=== PATIENT | male | born 1950 | race Caucasian/White ===

== ENCOUNTER 2019-11-12 14:01 | Emergency (ER) | payer OTHER ==
[~2019-11-12] VITALS: Ht 165.1 cm; Wt 88.0 kg
[~2019-11-12 14:01] MED LIST: AMLO5TAB15; SIMV5TAB50
[2019-11-12 14:50] LABS: Basophils # (auto) 0.1 10 ^3/uL (0-0.2); Basophils % (auto) 0.9 % (0.0-2.0); Eosinophils # (auto) 0.2 10 ^3/uL (0-0.8); Eosinophils % (auto) 2.4 % (0.0-7.0); Hematocrit 49.4 % (41.0-53.0); Lymphocytes # (auto) 2.2 10 ^3/uL (0.4-5.4); Lymphocytes % (auto) 28.3 % (10.0-50.0); Mean Corpuscular Hemoglobin 30.8 pg (28.0-32.0); Mean Corpuscular Hgb Conc. 34.5 g/dL (32.0-36.0); Mean Corpuscular Volume 89.5 fL (80.0-100.0); Monocytes # (auto) 0.7 10 ^3/uL (0-1.3); Monocytes % (auto) 9.3 % (0.0-12.0); Neutrophils # (auto) 4.7 10 ^3/uL (1.6-8.6); Neutrophils % (auto) 59.1 % (37.0-80.0); Nucleated Red Blood Cells % 0.4 %; Platelet Count (auto) 193 10^3/uL (140-450); Red Blood Cells 5.52 10^6/uL (4.5-5.90); Red Cell Distribution Width 13.6 % (11.8-14.3); White Blood Cell 7.9 10^3/uL (4.4-10.8)
[2019-11-12 15:26] LABS: Anion Gap 7 (5-15); Blood Urea Nitrogen 15 mg/dL (7-18); Calcium 8.7 mg/dL (8.5-10.1); Carbon Dioxide 25 mmol/L (21-32); Chloride 107 mmol/L (98-107); Glucose 137 mg/dL (74-106); Magnesium 2.1 mg/dL (1.6-2.6); Potassium 3.8 mmol/L (3.5-5.1); Sodium 139 mmol/L (136-145)
[2019-11-12] MEDS ORDERED: TAMSULOSIN HYDROCHLORIDE 0.4 MG CAP PO ONE (15:30)
[2019-11-12] MEDS ORDERED: ONDANSETRON HCL 4 MG/2 ML VIAL IV ONE (15:30)
[2019-11-12] MEDS ORDERED: MORPHINE SULFATE 4 MG/ML SYR/VIAL IV ONE (15:30)
[2019-11-12 15:34] LABS: Alanine Aminotransferase 47 U/L (16-61); Alkaline Phosphatase 82 U/L (45-117); Aspartate Aminotransferase 20 U/L (15-37); BUN/Creatinine Ratio 14.3; Bilirubin, Total 1.6 mg/dL (0.2-1.0); GFR African American 91 mL/min; GFR Non-African American 75 mL/min; Total Protein 7.5 g/dL (6.4-8.2)
[2019-11-12] MEDS ORDERED: KETOROLAC TROMETH 30 MG/ML 1ML VIAL IV ONE (15:45)
[2019-11-12] MEDS ORDERED: SODIUM CHLORIDE 0.9% 1,000 ML IV ONE (16:45)
[2019-11-12 17:11] LABS: Urine Bacteria NONE SEEN /hpf (None Seen); Urine Blood Negative /uL (Negative); Urine Mucus FEW (None Seen); Urine Specific Gravity 1.025 (1.001-1.035); Urine WBC 2 /hpf (0 - 3)
[2019-11-12 17:19] LABS: Amphetamine Screen, Urine NEGATIVE (NEGATIVE); Barbiturate Scree,Urine NEGATIVE (NEGATIVE); Benzodiazephine Screen, Urine NEGATIVE (NEGATIVE); Cannabinoid Screen, Urine NEGATIVE (NEGATIVE); Cocaine Screen, Urine NEGATIVE (NEGATIVE); Opiate Scree,Urine NEGATIVE (NEGATIVE); Phencyclidine Screen, Urine NEGATIVE (NEGATIVE)
[2019-11-12 17:52] VITALS: BP 147/82
== END 2019-11-12 19:03 | disposition home or self-care (01) ==
LOC: ER 14:01
DX: N13.2 Hydronephrosis with renal and ureteral calculous obstruction (principal); E78.5 Hyperlipidemia, unspecified; I10 Essential (primary) hypertension; Z79.899 Other long term (current) drug therapy
CPT/HCPCS: 36415; 74176; 80053; 80307; 81001; 83735; 84484; 85025; 93005; 96374; 96375; 99285; J1885; J2405

== ENCOUNTER 2020-11-14 20:31 | Emergency (ER) | payer OTHER ==
[~2020-11-14] VITALS: Ht 165.1 cm; Wt 88.9 kg
[~2020-11-14 20:31] MED LIST changes: +AMLO-489; -AMLO5TAB15
[2020-11-14 21:15] LABS: Urine Bacteria NONE SEEN /hpf (None Seen); Urine Blood 2+ /uL (Negative); Urine Hyaline Cast FEW /lpf (0 - 2); Urine Specific Gravity 1.009 (1.001-1.035); Urine WBC 1 /hpf (0 - 3)
[2020-11-14 21:58] LABS: Basophils # (auto) 0.1 10 ^3/uL (0-0.2); Basophils % (auto) 0.4 % (0.0-2.0); Eosinophils # (auto) 0.1 10 ^3/uL (0-0.8); Eosinophils % (auto) 0.5 % (0.0-7.0); Hematocrit 48.1 % (41.0-53.0); Hemoglobin 16.9 g/dL (13.5-17.5); Lymphocytes # (auto) 1.4 10 ^3/uL (0.4-5.4); Lymphocytes % (auto) 9.6 % (10.0-50.0); Mean Corpuscular Hemoglobin 30.9 pg (28.0-32.0); Mean Corpuscular Hgb Conc. 35.1 g/dL (32.0-36.0); Monocytes % (auto) 6.8 % (0.0-12.0); Neutrophils # (auto) 12.4 10 ^3/uL (1.6-8.6); Neutrophils % (auto) 82.7 % (37.0-80.0); Nucleated Red Blood Cells % 0.1 %; Red Blood Cells 5.47 10^6/uL (4.5-5.90); Red Cell Distribution Width 13.6 % (11.8-14.3)
[2020-11-14 22:16] LABS: Albumin 3.9 g/dL (3.4-5.0); Calcium 9.3 mg/dL (8.5-10.1); Potassium 4.1 mmol/L (3.5-5.1)
[2020-11-14 22:17] LABS: BUN/Creatinine Ratio 12.5
[2020-11-14 22:20] LABS: Bilirubin, Total 1.7 mg/dL (0.2-1.0); Total Protein 7.8 g/dL (6.4-8.2)
[2020-11-15 00:15] VITALS: BP 170/93
[2020-11-15] MEDS ORDERED: ACETAMINOPHEN 325 MG TAB PO ONE (01:15)
== END 2020-11-15 02:22 | disposition left against medical advice (07) ==
LOC: ER 20:34
DX: N20.0 Calculus of kidney (principal); N13.30 Unspecified hydronephrosis; I10 Essential (primary) hypertension; E78.5 Hyperlipidemia, unspecified; Z79.899 Other long term (current) drug therapy
CPT/HCPCS: 36415; 80053; 81001; 85025

== ENCOUNTER 2023-12-04 15:24 | Inpatient (IN) | payer MEDICARE, OTHER ==
[~2023-12-04] VITALS: Ht 165.1 cm; Wt 77.7 kg
[~2023-12-04 15:24] MED LIST changes: -AMLO-489; +AMLO1TAB22; +SIMV5TAB14; -SIMV5TAB50
[2023-12-04 15:59] LABS: Basophils # (auto) 0 10 ^3/uL (0-0.2); Basophils % (auto) 0.3 % (0.0-2.0); Eosinophils # (auto) 0.1 10 ^3/uL (0-0.8); Hematocrit 50.9 % (41.0-53.0); Hemoglobin 17.4 g/dL (13.5-17.5); Lymphocytes # (auto) 0.9 10 ^3/uL (0.4-5.4); Lymphocytes % (auto) 10.2 % (10.0-50.0); Mean Corpuscular Hemoglobin 31.3 pg (28.0-32.0); Mean Corpuscular Hgb Conc. 34.2 g/dL (32.0-36.0); Mean Corpuscular Volume 91.7 fL (80.0-100.0); Monocytes # (auto) 0.6 10 ^3/uL (0-1.3); Neutrophils # (auto) 7.5 10 ^3/uL (1.6-8.6); Neutrophils % (auto) 81.5 % (37.0-80.0); Platelet Count (auto) 188 10^3/uL (140-450); Red Blood Cells 5.55 10^6/uL (4.5-5.90); Red Cell Distribution Width 13.9 % (11.8-14.3); White Blood Cell 9.2 10^3/uL (4.4-10.8)
[2023-12-04 16:02] LABS: Urine Bacteria None Seen /hpf (None Seen)
[2023-12-04 16:09] LABS: Chloride 108 mmol/L (98-107); Potassium 4.1 mmol/L (3.5-5.1); Sodium 140 mmol/L (136-145)
[2023-12-04 16:10] LABS: Anion Gap 6 (5-15); Calcium 10.1 mg/dL (8.7-10.4); Carbon Dioxide 26 mmol/L (20-31)
[2023-12-04 16:15] LABS: Blood Urea Nitrogen 10 mg/dL (9-23); Glucose 126 mg/dL (74-106)
[2023-12-04 16:22] LABS: Urine Blood 2+ /uL (Negative); Urine Clarity Clear (Clear); Urine Color Colorless (Yellow); Urine Protein, UAD 1+ (Negative); Urine Urobilinogen Normal (Negative); Urine WBC 1 /hpf (0 - 3); Urine pH 5.5 (5.0-9.0)
[2023-12-04] MEDS: ASPirin 81 mg TAB PO ONE (16:51)
[2023-12-04] MEDS: ONDANSETRON HCL 4 MG/2 ML VIAL IV ONE (17:20)
[2023-12-04 18:00] VITALS: PULSE 60; RESP 18; O2SAT 94
[2023-12-04] MEDS ORDERED: MORPHINE SULFATE 4 MG/ML SYR/VIAL IV ONE (20:00)
[2023-12-04] MEDS ORDERED: NITROGLYCERIN 0.4 MG SL TAB SL PRN (22:45)
[2023-12-04] MEDS ORDERED: MORPHINE SULFATE INJ 2 MG/ml SYRG IV PRN (22:45)
[2023-12-04] MEDS ORDERED: ACETAMINOPHEN 325 MG TAB PO PRN (22:45)
[2023-12-04] MEDS ORDERED: HYDROcodone-ACET 5/325MG TAB PO PRN (22:45)
[2023-12-04] MEDS ORDERED: ONDANSETRON HCL 4 MG/2 ML VIAL IV PRN (22:45)
[2023-12-04] MEDS: SODIUM CHLORIDE 0.9% 1,000 ML IV SCH (23:10)
[2023-12-05] MEDS: ONDANSETRON HCL 4 MG/2 ML VIAL IV ONE (03:17)
[2023-12-05 04:13] VITALS: BP 136/85; PULSE 70; RESP 18; TEMP 98.1; O2SAT 95
[2023-12-05 04:20] VITALS: BP 136/85; PULSE 70; RESP 18; TEMP 98.1; O2SAT 95
[2023-12-05 05:00] VITALS: BP 132/76; PULSE 68; RESP 18; TEMP 98.1; O2SAT 95
[2023-12-05] MEDS ORDERED: ATOR-47 PO (06:29)
[2023-12-05] MEDS ORDERED: EMPA1TAB3 PO (06:29)
[2023-12-05] MEDS ORDERED: LOSA-533 PO (06:30)
[2023-12-05] MEDS ORDERED: ASPI-543 PO (06:30)
[2023-12-05 08:00] VITALS: PULSE 56; PULSE 57; RESP 18; O2SAT 95
[2023-12-05 09:00] VITALS: BP 112/70; PULSE 57; RESP 18; TEMP 98.1; O2SAT 95
[2023-12-05] MEDS: ASPirin 81 mg TAB PO SCH (09:49)
[2023-12-05] MEDS: LOSARTAN POTASSIUM 25 MG TAB PO SCH (09:49)
[2023-12-05] MEDS: ENOXAPARIN SOD 40 MG/0.4 ML SYRINGE SC SCH (10:00)
[2023-12-05 10:06] LABS: Basophils # (auto) 0 10 ^3/uL (0-0.2); Basophils % (auto) 0.5 % (0.0-2.0); Eosinophils # (auto) 0.1 10 ^3/uL (0-0.8); Eosinophils % (auto) 1.3 % (0.0-7.0); Hematocrit 46.8 % (41.0-53.0); Hemoglobin 16.1 g/dL (13.5-17.5); Lymphocytes % (auto) 13.5 % (10.0-50.0); Mean Corpuscular Hemoglobin 31.4 pg (28.0-32.0); Mean Corpuscular Hgb Conc. 34.4 g/dL (32.0-36.0); Mean Corpuscular Volume 91.3 fL (80.0-100.0); Monocytes # (auto) 0.6 10 ^3/uL (0-1.3); Monocytes % (auto) 7.2 % (0.0-12.0); Neutrophils % (auto) 77.5 % (37.0-80.0); Nucleated Red Blood Cells % 0.1 %; Platelet Count (auto) 167 10^3/uL (140-450); Red Blood Cells 5.13 10^6/uL (4.5-5.90); Red Cell Distribution Width 13.9 % (11.8-14.3); White Blood Cell 7.7 10^3/uL (4.4-10.8)
[2023-12-05 10:12] LABS: Alanine Aminotransferase 39 U/L (7-40); Alkaline Phosphatase 85 U/L (46-116); Anion Gap 7 (5-15); BUN/Creatinine Ratio 9.9 (10.0-20.0); Blood Urea Nitrogen 9 mg/dL (9-23); Calcium 9.4 mg/dL (8.7-10.4); Carbon Dioxide 27 mmol/L (20-31); Chloride 106 mmol/L (98-107); Glucose 147 mg/dL (74-106); Sodium 140 mmol/L (136-145)
[2023-12-05 10:14] LABS: Aspartate Aminotransferase 19 U/L (13-40); Bilirubin, Total 2.2 mg/dL (0.2-1.0); Total Protein 6.7 g/dL (5.7-8.2)
[2023-12-05 13:00] VITALS: BP 96/58; PULSE 57; RESP 20; TEMP 98.4; O2SAT 93
[2023-12-05] MEDS ORDERED: ATORVASTATIN 20 MG TAB PO SCH (22:00)
[2023-12-06] MEDS ORDERED: EMPAGLIFLOZIN 10 MG TAB PO SCH (10:00)
== END 2023-12-05 16:00 | disposition left against medical advice (07) | DRG 444 ==
LOC: ER 15:24 → TELE 22:38 → TELE-EAST 12-05 03:32
PROVIDERS: ATTEND Emergency Medicine
DX: K80.20 Calculus of gallbladder without cholecystitis without obstruction (principal); I50.21 Acute systolic (congestive) heart failure; I25.110 Atherosclerotic heart disease of native coronary artery with unstable angina pectoris; N20.0 Calculus of kidney; I11.0 Hypertensive heart disease with heart failure; N21.0 Calculus in bladder; I16.0 Hypertensive urgency; E78.5 Hyperlipidemia, unspecified; Z53.29 Procedure and treatment not carried out because of patient's decision for other reasons; Z79.899 Other long term (current) drug therapy; Z87.442 Personal history of urinary calculi; Z79.82 Long term (current) use of aspirin
CPT/HCPCS: 36415; 71045; 74176; 80048; 80053; 81001; 82306; 82607; 83036; 83735; 83880; 84443; 84484; 85025; 93005; 93306; 99291; G0378; J2405